=== PATIENT | male | born 1955 | race Caucasian/White ===

== ENCOUNTER 2023-09-05 11:10 | Outpatient (OUT) | payer MEDICARE, SELFPAY ==
--- NOTE | 2023-09-05 11:26 | ECG_ITS ---
[facility] Test Date: 2023-09-05 Pat Name: MARIANN ROWE Department: Room: - Gender: Male [employer] T[employer]: : 1955 Requested By: ALICIA GOMEZ Order Number: [id number] Reading MD: RUSLAN VALENCIA Measurements Intervals [place] Rate: 76 P: 28 VA: 152 QRS: 28 QRSD: 105 T: 53 QT: 370 QTc: 418 Interpretive Statements SINUS RHYTHM Compared to ECG 11/28/2021 14:46:06 No significant changes Electronically Signed On 09-06-2023 6:41:56 EDT by RUSLAN VALENCIA
--- NOTE | 2023-09-05 11:56 | P.GSHP_ITS ---
History of Present Illness History of Present Illness Chief complaint: bph Narrative: Patient presents for preadmission testing. The patient states he has urinary frequency and nocturia but denies any other urinary symptoms and states he has an enlarged prostate. He denies nausea, vomiting, fever, hematuria, dysuria, or any other complaints Review of Systems ROS Narrative REVIEW OF SYSTEMS: Negative except as stated in HPI, ten or more systems reviewed. Constitutional: No fever , chills, weakness ENT: No sore throat or epistaxis Cardiovascular: No edema, chest pain, palpitations, or activity intolerance Respiratory: No shortness of breath, cough, or wheezing Musculoskeletal: No joint pain or swelling Gastrointestinal: No abdominal pain, constipation, diarrhea, or vomiting Genitourinary: No dysuria or hematuria Neurological: No numbness, tingling, weakness, or headache Psychiatric: No mood changes PFSH PFS Medical History (Updated 09/05/23 @ 11:40 by Yuki Soriano NP) Pneumonia ?J18.9 - Pneumonia, unspecified organism (ICD-10) High cholesterol ?E78.00 - Pure hypercholesterolemia, unspecified (ICD-10) Hypertension ?I10 - Essential (primary) hypertension (ICD-10) Diabetes ?E11.9 - Type 2 diabetes mellitus without complications (ICD-10) Sepsis (~05/2023) ?A41.9 - Sepsis, unspecified organism (ICD-10) Syncopal episodes ?R55 - Syncope and collapse (ICD-10) S/P extracorporeal shock wave therapy ?Z98.890 - Other specified postprocedural states (ICD-10) Renal cyst ?N28.1 - Cyst of kidney, acquired (ICD-10) UTI (urinary tract infection) ?N39.0 - Urinary tract infection, site not specified (ICD-10) Microscopic hematuria ?R31.29 - Other microscopic hematuria (ICD-10) Kidney stones ?N20.0 - Calculus of kidney (ICD-10) Sleep apnea ?G47.30 - Sleep apnea, unspecified (ICD-10) Asthma ?J45.909 - Unspecified asthma, uncomplicated (ICD-10) Depression ?F32.A - Depression, unspecified (ICD-10) BPH with obstruction/lower urinary tract symptoms ?N40.1 - Benign prostatic hyperplasia with lower urinary tract symptoms (ICD- 10) ?N13.8 - Other obstructive and reflux uropathy (ICD-10) Anxiety ?F41.9 - Anxiety disorder, unspecified (ICD-10) Surgical History (Updated 09/05/23 @ 11:40 by Yuki Soriano NP) History of colonoscopy ?Z98.890 - Other specified postprocedural states (ICD-10) Hx of tonsillectomy ?Z90.89 - Acquired absence of other organs (ICD-10) H/O cystoscopy ?Z98.890 - Other specified postprocedural states (ICD-10) Family History (Updated 09/05/23 @ 11:24 by Yuki Soriano NP) Other Dementia Family history of hypertension Social History (Updated 09/05/23 @ 11:36 by Yuki Soriano NP) Within the past year, how often did you have a drink containing alcohol: monthly or less Smoking status: Never smoker Non-prescribed substance use: denies use Highest level of school completed/degree received: Associate degree: academic program Meds Home Medications and Allergies Home Medications ?Medication ?Instructions ?Recorded ?Confirmed ?Type amlodipine 5 mg tablet 5 mg PO DAILY 09/05/23 09/05/23 History bupropion HCl 300 mg 24 hr tablet, mg PO 09/05/23 History extended release hydrochlorothiazide 25 mg tablet 25 mg PO DAILY 09/05/23 09/05/23 History olmesartan 20 mg tablet 20 mg PO DAILY 09/05/23 09/05/23 History semaglutide 0.25 mg or 0.5 mg (2 0.25 mg subcut QWEEK 09/05/23 09/05/23 History mg/1.5 mL) subcutaneous pen injector (Ozempic) venlafaxine 150 mg mg PO 09/05/23 History capsule,extended release 24 hr Allergies Allergy/AdvReac Type Severity Reaction Status Date / Time perflutren [From Definity] AdvReac Vomiting Verified 09/05/23 11:41 Exam Narrative Exam Narrative: Constitutional: Awake, alert, comfortable, well-appearing, nontoxic, interactive, vital signs as charted Head: Normocephalic, atraumatic Neck: Supple, normal appearance, normal range of motion, no meningeal signs, no lymphadenopathy Respiratory: No respiratory distress, breath sounds clear Cardiovascular: Regular rate and rhythm, strong and regular heart tones Abdomen: Nontender, normal bowel sounds, soft, no CVA tenderness Musculoskeletal: Normal gait, no swelling or edema Skin: No rashes or induration, no lesions, only visible skin inspected Neuro: No neurological deficits, normal sensation Psychiatric: Oriented ?3, normal affect Assessment and Plan Assessment and Plan (1) BPH with obstruction/lower urinary tract symptoms: Plan Cystoscopy/transurethral resection of the prostate scheduled with Dr. Wills 09/13/2023.
[2023-09-05 12:35] LABS: Alanine Aminotransferase 57 U/L (16-63); Albumin Globulin Ratio 0.9; Albumin Level 3.7 g/dL (3.4-5.0); Alkaline Phosphatase 76 U/L (46-116); Aspartate Amino Transferase 32 U/L (15-37); BUN Creatinine Ratio 17.3; Bilirubin Total 0.6 mg/dL (0.2-1.0); Calcium 9.7 mg/dL (8.5-10.1); Carbon Dioxide 30.3 mmol/L (21.0-32.0); Chloride 102 mmol/L (98-107); Estimated GFR (African America >60 (>=60); Estimated GFR (Non-African Ame 57 (>=60); Globulin 4.1 g/dL; Glucose 115 mg/dL (74-106); Potassium 4.3 mmol/L (3.5-5.1); Sodium 140 mmol/L (136-145); Total Protein 7.8 g/dL (6.4-8.2)
[2023-09-05 12:46] LABS: INR 1.03; Partial Thromboplastin Time 31.6 sec (22.3-36.2); Prothrombin Time 10.9 sec (9.0-11.6)
[2023-09-05 13:14] LABS: Basophils Absolute Auto 0.1 10^3/uL (0.0-0.1); Basophils Percent Auto 1.1 % (0.2-2.0); Eosinophils Absolute Auto 0.2 10^3/uL (0.0-0.7); Eosinophils Percent Auto 3.8 % (0.9-7.0); Hemoglobin 16.3 g/dL (14.0-18.0); Immature Granulocytes Abs Auto 0.01 10^3/uL (0.00-0.03); Immature Granulocytes Pct Auto 0.2 % (0.0-0.5); Lymphocytes Percent Auto 35.2 % (20.5-60.0); Mean Corpuscular HGB Conc 33.3 g/dL (29.9-35.2); Mean Corpuscular Hemoglobin 29.4 pg (25.9-34.0); Mean Corpuscular Volume 88.3 fL (80.0-94.0); Mean Platelet Volume 9.8 fL (9.5-13.5); Monocytes Absolute Auto 0.5 10^3/uL (0.3-0.8); Monocytes Percent Auto 9.3 % (1.7-12.0); Neutrophils Absolute Auto 2.8 10^3/uL (1.4-6.5); Neutrophils Percent Auto 50.4 % (43.0-75.0); Platelet Count 270 10^3/uL (150-450); Red Blood Count 5.55 10^6/uL (4.70-6.10); Red Cell Distribution Width 13.3 % (11.0-15.0); White Blood Count 5.6 10^3/uL (4.0-11.0)
== END 2023-09-05 11:11 | disposition home or self-care (01) ==
LOC: PST 11:14
PROVIDERS: PCP Family Medicine; Visit Provider Urology
DX: Z01.810 Encounter for preprocedural cardiovascular examination (principal); Z01.812 Encounter for preprocedural laboratory examination; Z01.818 Encounter for other preprocedural examination; N40.1 Benign prostatic hyperplasia with lower urinary tract symptoms
CPT/HCPCS: 80053; 85025; 85610; 85730; 93005; G0463

== ENCOUNTER 2023-09-13 10:31 | Day surgery (SDC) | payer MEDICARE, SELFPAY ==
[2023-09-05 11:54] VITALS: BP 118/76; PULSE 89; TEMP 36.2; O2SAT 95; BMI 41.6
[2023-09-13] VITALS (14 sets, daily range): BP systolic 112–162; BP diastolic 66–92; PULSE 75–98; TEMP 36–36.8; O2SAT 90–97; BMI 41.8
[2023-09-13 10:48] LABS: Glucometer 114 mg/dL (74-106)
[2023-09-13] MEDS: LACTATED RINGER'S SOLUTION 1,000 ML 50 ML IV (10:56)
[2023-09-13] MEDS: LEVOFLOXACIN IN DEXTROSE 5 % 500 MG/100 ML PIGGYBACK 100 MG IV (14:24)
--- NOTE | 2023-09-13 15:47 | P.URON_ITS ---
Urology Surgery Operative Note Operative Note Procedure Date: 09/13/23 Time Out Performed: yes Pre-op Diagnosis: BPH with LUTS Post-op Diagnosis: same as pre-op Procedures performed: 1. Cystoscopy. 2. Transurethral resection of the prostate. Anesthesia: RIGOA Primary Surgeon: Ramón Wills Complications: None Estimated blood loss (mL): 10 Findings: High median bar and obstructing lateral lobes Specimens: Prostate chips Drains: 22 Liberian three-way coud? Alejandre taped to traction and CBI Indications for Procedures: This gentleman has BPH with LUTS despite medications. Endoscopically he is obstructed. Urodynamically he has a elevated postvoid residual over 200 cc, a weak stream and high intravesical pressure. He has been uroseptic in the recent past. He is strongly desirous for TURP. He has signed an informed consent after all risks were explained. Some of these risks include bleeding, infection, anesthesia, urinary incontinence both temporary and permanent, retrograde ejaculation, erectile dysfunction and persistent urinary dysfunction along with the possibility for needing to do other prostate procedures just to name a few. Detailed description of Procedure: The patient was brought to the operating room and placed on the operating room table in the supine position. SCDs were placed on the lower extremities and turned on and functioning during the entire case. Timeout was done by all parties in the room. We all agreed upon the patient's identification and the planned procedures for this patient. Genn. anesthesia was then administered. The patient was then repositioned into the modified dorsal lithotomy position. All pressure points were satisfactorily padded. Genitalia were sterilely prepped and draped in usual fashion. I started by passing a 26 Liber[place] Olympus resectoscope with a standard bipolar loop electrode per urethra and into the bladder. This is were identified and marked with the loop electrode. I started on the median bar and uniformly resected this down to the bladder neck level. I then resected posteriorly from the bladder neck to the Veru level. The left lateral lobe was then resected from the bladder neck to the Sharon and the capsular level. The right lateral lobe and the anterior tissue were then resected similarly. The apex was then opened up. The resection bed was coagulated. The Ilich evacuator was used to get all the prostate chips out of the bladder and these were sent for permanent sections. With the scope at the Veru, the prostatic urethra and bladder neck were now wide open. There was no bleeding. There were no chips in the bladder. The scope was then removed. I then passed a 22 Liberian three-way coud? Alejandre in the bladder. This was manually irrigated with a Katie syringe. 30 cc of fluid was placed in the balloon. It was taped to traction and CBI was started. It irrigated clear. The anesthetic was then reversed. He was then transferred to a [place] bed and wheeled to PACU in stable condition. Urinary Catheter Management Urinary Catheter Management Urethral: Cath placed during this visit: yes Urethral indwelling: Yes Reason for continuing: surgical procedure Insertion date: 09/13/23
[2023-09-13] MEDS: 0.9 % SODIUM CHLORIDE 1,000 ML 80 ML IV (15:50)
[2023-09-13] MEDS: SOLIFENACIN SUCCINATE 10 MG TABLET PO (16:02)
[2023-09-13] MEDS: CEFAZOLIN SODIUM/DEXTROSE,ISO 1 GM/50 ML IV.SOLN IV (19:13)
[2023-09-13] MEDS: SODIUM CHLORIDE IRRIG SOLUTION 3,000 ML 3000 ML IRR (22:54)
[2023-09-14] MEDS: CEFAZOLIN SODIUM/DEXTROSE,ISO 1 GM/50 ML IV.SOLN IV (00:54)
[2023-09-14 04:00] VITALS: BP 126/75; PULSE 87; TEMP 36.7; O2SAT 94
[2023-09-14] MEDS: 0.9 % SODIUM CHLORIDE 1,000 ML 80 ML IV (05:13)
[2023-09-14 07:22] VITALS: BP 120/67; PULSE 80; TEMP 36.6; O2SAT 94
[2023-09-14] MEDS: LOSARTAN POTASSIUM 50 MG TABLET PO (08:44)
[2023-09-14] MEDS: HYDROCHLOROTHIAZIDE 25 MG TABLET PO (08:44)
[2023-09-14] MEDS: AMLODIPINE BESYLATE 5 MG TABLET PO (08:44)
[2023-09-14] MEDS: BUPROPION HCL 150 MG XL TABLET 24H 300 MG PO (08:44)
[2023-09-14] MEDS: VENLAFAXINE HCL ER 150 MG CAPSULE PO (08:45)
[2023-09-14] MEDS: SOLIFENACIN SUCCINATE 10 MG TABLET PO (08:45)
== END 2023-09-14 10:00 | disposition home or self-care (01) ==
LOC: SURGOUT 15:37 → MS 16:18
PROVIDERS: PCP Family Medicine; Visit Provider Urology
PROC: (CPT 52601; principal; 2023-09-13 12:40)
DX: N40.1 Benign prostatic hyperplasia with lower urinary tract symptoms (principal); F32.A Depression, unspecified; F41.9 Anxiety disorder, unspecified; J45.909 Unspecified asthma, uncomplicated; G47.30 Sleep apnea, unspecified; Z87.442 Personal history of urinary calculi; I10 Essential (primary) hypertension; R39.12 Poor urinary stream; E78.00 Pure hypercholesterolemia, unspecified; Z87.01 Personal history of pneumonia (recurrent); Z87.440 Personal history of urinary (tract) infections; Z79.85 Long-term (current) use of injectable non-insulin antidiabetic drugs; R35.1 Nocturia; N28.9 Disorder of kidney and ureter, unspecified
CPT/HCPCS: 52601; 36415; 82948; 88305; J1094; J2704